=== PATIENT | female | born 1945 | race Caucasian/White ===

== ENCOUNTER 2017-10-23 06:57 | Observation (INO) ==
[2017-10-23] MEDS ORDERED: 0.9 % Sodium Chloride 500 ML IVC ONE (07:18)
--- NOTE | 2017-10-23 07:30 | Emergency Department Note ---
Disposition Clinical Impression: Generalized weakness, Dehydration Disposition: Admitted As Inpatient Condition: Fair Referrals: Aleena Lange MD [Primary Care Provider] - Forms: ED Satisfaction Letter, Work/School Release Weakness HPI - General Chief complaint: ED General Medical Stated complaint: "I just got weak today" Time Seen by Provider: 10/23/17 07:05 Source: patient, EMS Mode of arrival: EMS Limitations: no limitations Nursing Notes Reviewed: Yes Vital Signs Reviewed: Yes - History of Present Illness HPI Narrative: Patient presents to the ED via EMS complaining of generalized weakness. States she felt extremely weak when she woke up this morning and could "barely move". Denies any focal weakness, numbness or tingling in her arms or her legs. States she felt fine yesterday and when she went to bed last night. States she was nauseous earlier this morning and did vomit "a little bit." She denies any nausea now. No abdominal pain. She had one episode of soft loose stools. Denies any blood in her emesis or stool. Denies any chest pain or shortness of breath. No lightheadedness or dizziness. No fever or chills. No urinary symptoms. She does have some leg swelling which she states she noticed 2 days ago. No recent travel or sick contacts. No recent medication changes. She has not taken any of her daily medicines yet today. She has a history of high blood pressure and took her medications last night. Medical issues include CAD , cardiomyopathy, CHF, PR, hypertension and hyperlipidemia. She had both a CABG and stents in 2003. She also has chronic back pain for which she sees pain management, takes [place] and has a spinal stimulator. Pain Scale: 0 - Related Data Home Medications Medication Instructions Recorded Confirmed Atorvastatin [Lipitor] 10 mg PO HS 03/27/15 02/17/17 Carvedilol Phosphate [Coreg Cr] 20 mg PO DAILY 03/27/15 02/17/17 Famotidine [Pepcid] 40 mg PO BID 03/27/15 02/17/17 Hydrocodone/Acetaminophen [[place] 1 tab PO Q4-6H PRN 03/27/15 02/17/17 10-325 Tablet] Lisinopril [Zestril] 5 mg PO DAILY 02/11/17 02/17/17 Previous Rx's Medication Instructions Recorded Aspirin 81 mg PO DAILY #30 tab.chew 11/07/15 Budesonide/Formoterol 160/4.5 2 puff IH BIDR #1 inhaler 11/07/15 [Symbicort 160/4.5] Furosemide [Lasix] 20 mg PO DAILY #30 tablet 11/07/15 Nitroglycerin 0.4 mg SL Q5MIN PRN #20 tab.subl 11/07/15 Nicotine Patch [Nicoderm] 14 mg TD DAILY #28 patch 02/15/17 predniSONE [PredniSONE] 10 mg PO DAILY #15 tablet 02/15/17 levoFLOXacin [Levaquin] 750 mg PO DAILY #7 tablet 02/19/17 Allergies Allergy/AdvReac Type Severity Reaction Status Date / Time No Known Drug Allergies Allergy See Verified 02/17/17 10:08 Comments Constitutional: Reports: weakness. Denies: fever, chills, weight change Eyes: Denies: eye pain, eye discharge, vision change ENT ED: Denies: ear pain, throat pain, dental pain, hearing loss, epistaxis, congestion, dysphagia Cardiovascular: Reports: as per HPI, edema. Denies: chest pain, palpitations, dyspnea on exertion, syncope Respiratory: Denies: cough, dyspnea, wheezes, hemoptysis, stridor Gastrointestinal: Reports: as per HPI, nausea, vomiting, diarrhea. Denies: abdominal pain, constipation, hematemesis, melena, hematochezia Genitourinary: Denies: dysuria, frequency, hematuria, discharge Musculoskeletal: Denies: back pain, neck pain, arthralgia, myalgia Integumentary: Denies: rash, abrasion, lesions Neurological: Denies: headache, weakness, numbness, paresthesias, confusion, abnormal gait, vertigo Psychiatric: Denies: anxiety, depression, suicidal thoughts, homicidal thoughts , auditory hallucinations, visual hallucinations Endocrine: Denies: fatigue Hematological/Lymphatic: Denies: easy bleeding, easy bruising Allergic/Immunologic: Denies: facial swelling, urticaria Past Medical History - Past Medical History Medical history: Reports: cardiomyopathy, CHF, coronary artery disease, hyperlipidemia, hypertension, myocardial infarction Surgical history: Reports: appendectomy, carotid endarterectomy, cholecystectomy , coronary bypass (CABG), hysterectomy Psychiatric history: Reports: no psych history CRANBERRY GROWER history: Reports: no CRANBERRY GROWER history - Social History Smoking Status: Current every day smoker Smokeless Tobacco Status: No Alcohol use: Reports: none Drug use: Reports: none Physical Exam - General Limitations: no limitations General appearance: alert, in no apparent distress, other (thin, frail appearing ) - Head Head exam: atraumatic, normocephalic, normal inspection - Eye Eye exam: Present: normal appearance - ENT ENT exam: normal exam, normal oropharynx, mucous membranes moist - Neck Neck exam: Present: normal inspection, full ROM, trachea midline - Chest Chest inspection: Present: normal inspection, symmetric chest wall rise - Respiratory Respiratory exam: Present: normal lung sounds bilaterally - Cardiovascular Cardiovascular exam: Present: regular rate, normal rhythm, normal heart sounds - Abdominal Exam Abdominal exam: Present: soft, Non-Tender. Absent: tenderness, distention, guarding, rebound, rigidity - Extremities Exam Extremities exam: Present: normal inspection, full ROM, pedal edema (1+ bilaterally). Absent: tenderness - Back Exam Back exam: Present: normal inspection, full ROM. Absent: tenderness - Neurological Exam Neurological exam: Present: alert, oriented X3 - Psychiatric Psychiatric exam: Present: normal affect, normal mood - Skin Skin exam: Present: warm, dry, intact, normal color Course Course Narrative: Patient presents to the ED with complaint of generalized weakness and was present upon waking this morning as well as a single episode of vomiting and diarrhea without any current nausea or abdominal pain. On arrival she was hypotensive at 83/45. Subsequent blood pressure was 105/50 without intervention. She is not tachycardic with a heart rate in the 60s. Physical exam is overall unremarkable other than some lower extremity swelling. Given her cardiac history history will obtain EKG, chest x-ray and lab work. Will check orthostatic vital signs and give a fluid bolus. - Reevaluation(s) Reevaluation #1: Blood pressure has continued to improve with mild hydration. Chest x-ray shows changes of COPD and emphysema but no acute process. EKG shows atrial rhythm with no ischemic changes. Laboratory studies do show a nonspecific leukocytosis but lactic acid is normal. Fluctuates unremarkable. She has a mild stable anemia. Creatinine is increased from baseline mildly. He been unable to obtain urinalysis patient had a large loose foul-smelling bowel movement. This will be tested for C. difficile. I feel the patient would benefit from admission for continued hydration and monitoring and she is in agreement. Will contact the hospitalist on-call. Time: 08:50 Reevaluation #2: I spoke to hospitalist on-call, Dr. Hernandes, who. has agreed to admit the patient Vital Signs Temperature 98.4 F 10/23/17 06:59 Pulse Rate 65 10/23/17 06:59 Respiratory Rate 14 10/23/17 06:59 Blood Pressure 83/45 10/23/17 06:59 O2 Sat by Pulse Oximetry 97 10/23/17 06:59 Temperature 98.4 F 10/23/17 06:59 Pulse Rate 71 10/23/17 08:48 Respiratory Rate 20 10/23/17 08:38 Blood Pressure 129/63 10/23/17 08:48 O2 Sat by Pulse Oximetry 96 10/23/17 08:38 Oxygen Delivery Oxygen Delivery Room Air Weakness - Differential Diagnosis Differential Diagnosis: Likely: anemia, sepsis/infection, dehydration, metabolic , thyroid/endocrine disorder - Medical Records Medical records reviewed: Yes I reviewed the patient's medical records. - Lab Data Lab results reviewed: Yes I reviewed the patient's lab results. Result diagrams: 10/23/17 07:55 10/23/17 07:55 Lab Results 10/23/17 10/23/17 10/23/17 Range/Units 07:55 07:55 07:55 WBC 16.5 H (4.3-11.1) K/mcL RBC 3.30 L (3.82-4.97) M/mcL Hgb 10.8 L (11.5-15.4) g/dL Hct 33.3 L (35.3-44.9) % MCV 100.9 H (83.0-100.0) fL MCH 32.7 (28.0-33.3) pg MCHC 32.4 (31.6-35.5) g/dL RDW 19.6 H (11.5-14.5) % Plt Count 330 (140-400) K/mcL MPV 11.5 (9.4-12.4) fL Immature Gran % 0.5 (0-4) % Seg Neutrophils % 85.7 % Lymphocytes % 7.0 % Monocytes % 5.2 % Eosinophils % 1.4 % Basophils % 0.2 % Neutrophils # 14.1 H (1.6-8.9) K/mcL Lymphocytes # 1.2 (0.6-4.6) K/mcL Monocytes # 0.9 (0.0-1.3) K/mcL Eosinophils # 0.2 (0.0-0.6) K/mcL Basophils # 0.0 (0.0-0.2) K/mcL Nucleated RBCs/100 WBC 0.7 H (0) /100 WBC Sodium 137 (136-145) mEq/L Potassium 4.1 (3.5-5.1) mEq/L Chloride 102 (98-107) mEq/L Carbon Dioxide 28 (23-29) mEq/L BUN 31 H (8-23) mg/dL Creatinine 1.64 H (0.60-1.20) mg/dL Est GFR ( Amer) 37 L (> 60) Est GFR (Non-Af Amer) 31 L (> 60) BUN/Creatinine Ratio 19 (6-26) Glucose 111 H (70-105) mg/dL Calculated Osmolality 291 (280-300) Lactic Acid 1.5 (0.5-2.2) mmol/L Calcium 9.5 (8.6-10.3) mg/dL Total Bilirubin 0.7 (0.3-1.0) mg/dL AST 67 H (13-39) Units/L ALT 29 (7-52) Units/L Alkaline Phosphatase 55 (34-104) Units/L Troponin I < 0.03 (< 0.04) ng/mL B-Natriuretic Peptide (Less than 100) pg/mL Serum Total Protein 6.9 (6.4-8.9) g/dL Albumin 4.5 (3.5-5.7) g/dL Globulin 2.4 (2.4-3.5) g/dL Albumin/Globulin Ratio 1.9 (1.1-2.2) TSH 0.971 (0.340-5.600) mcIU/mL 10/23/17 Range/Units 07:55 WBC (4.3-11.1) K/mcL RBC (3.82-4.97) M/mcL Hgb (11.5-15.4) g/dL Hct (35.3-44.9) % MCV (83.0-100.0) fL MCH (28.0-33.3) pg MCHC (31.6-35.5) g/dL RDW (11.5-14.5) % Plt Count (140-400) K/mcL MPV (9.4-12.4) fL Immature Gran % (0-4) % Seg Neutrophils % % Lymphocytes % % Monocytes % % Eosinophils % % Basophils % % Neutrophils # (1.6-8.9) K/mcL Lymphocytes # (0.6-4.6) K/mcL Monocytes # (0.0-1.3) K/mcL Eosinophils # (0.0-0.6) K/mcL Basophils # (0.0-0.2) K/mcL Nucleated RBCs/100 WBC (0) /100 WBC Sodium (136-145) mEq/L Potassium (3.5-5.1) mEq/L Chloride (98-107) mEq/L Carbon Dioxide (23-29) mEq/L BUN (8-23) mg/dL Creatinine (0.60-1.20) mg/dL Est GFR ( Amer) (> 60) Est GFR (Non-Af Amer) (> 60) BUN/Creatinine Ratio (6-26) Glucose (70-105) mg/dL Calculated Osmolality (280-300) Lactic Acid (0.5-2.2) mmol/L Calcium (8.6-10.3) mg/dL Total Bilirubin (0.3-1.0) mg/dL AST (13-39) Units/L ALT (7-52) Units/L Alkaline Phosphatase (34-104) Units/L Troponin I (< 0.04) ng/mL B-Natriuretic Peptide 439 H (Less than 100) pg/mL Serum Total Protein (6.4-8.9) g/dL Albumin (3.5-5.7) g/dL Globulin (2.4-3.5) g/dL Albumin/Globulin Ratio (1.1-2.2) TSH (0.340-5.600) mcIU/mL - Radiology Data Radiology results reviewed: Yes I reviewed the patient's radiology results. ITS Impressions Chest X-Ray 10/23/17 07:18 IMPRESSION: 1. No acute cardiopulmonary abnormality. 2. COPD and emphysema. D/ / Sylvia Goddard MD / Sylvia Goddard MD Interpreting Provider: Sylvia Goddard MD - EKG Data EKG attestation: Yes I reviewed and interpreted this EKG. EKG shows normal: sinus rhythm Rate: normal Rhythm: NSR [place]/QRS: normal Interpretation: no acute changes, unchanged when compared to prior tracing (date ) (02/16/17)
[2017-10-23 08:04] LABS: Basophils % 0.2 %; Eosinophils # 0.2 K/mcL (0.0-0.6); Eosinophils % 1.4 %; Hematocrit 33.3 % (35.3-44.9); Hemoglobin 10.8 g/dL (11.5-15.4); Immature Granulocytes % 0.5 % (0-4); Lymphocytes # 1.2 K/mcL (0.6-4.6); Mean Corpuscular HGB Conc 32.4 g/dL (31.6-35.5); Mean Corpuscular Hemoglobin 32.7 pg (28.0-33.3); Mean Corpuscular Volume 100.9 fL (83.0-100.0); Mean Platelet Volume 11.5 fL (9.4-12.4); Monocytes # 0.9 K/mcL (0.0-1.3); Monocytes % 5.2 %; Neutrophils # 14.1 K/mcL (1.6-8.9); Nucleated Red Blood Cells 0.7 /100 WBC (0); Platelet Count 330 K/mcL (140-400); Red Cell Distribution Width 19.6 % (11.5-14.5); Segmented Neutrophils % 85.7 %
[2017-10-23 08:21] LABS: Alanine Aminotransferase 29 Units/L (7-52); Albumin 4.5 g/dL (3.5-5.7); Albumin/Globulin Ratio 1.9 (1.1-2.2); Alkaline Phosphatase 55 Units/L (34-104); Aspartate Amino Transferase 67 Units/L (13-39); BUN/Creatinine Ratio 19 (6-26); Bilirubin,Total 0.7 mg/dL (0.3-1.0); Blood Urea Nitrogen 31 mg/dL (8-23); Calcium 9.5 mg/dL (8.6-10.3); Carbon Dioxide 28 mEq/L (23-29); Chloride 102 mEq/L (98-107); Globulin 2.4 g/dL (2.4-3.5); Glucose 111 mg/dL (70-105); Osmolality,Calculated 291 (280-300); Potassium 4.1 mEq/L (3.5-5.1); Sodium 137 mEq/L (136-145); Total Protein 6.9 g/dL (6.4-8.9); eGFR For African Americans 37 (> 60); eGFR For Non-African Americans 31 (> 60)
[2017-10-23 08:22] LABS: Troponin I < 0.03 ng/mL (< 0.04)
[2017-10-23 08:35] LABS: Thyroid Stimulating Hormone 0.971 mcIU/mL (0.340-5.600)
[2017-10-23] MEDS ORDERED: Naloxone 0.4 MG/ML INJ IVP PRN ×2 (08:56→10:15)
[2017-10-23] MEDS ORDERED: 0.9 % Sodium Chloride 1,000 ML IVC SCH ×2 (09:00→10:15)
--- NOTE | 2017-10-23 12:43 | Internal Med History&Physical ---
Date of Encounter: 10/23/17 Time of Encounter: 12:05 Assessment and Plan (1) Neutrophilic leukocytosis Current visit: Yes Status: Acute Etiology not obvious. Chest x-ray was unremarkable. Urine culture has been ordered along with stool for C. difficile. (2) Anemia Current visit: No Status: Acute We will order anemia testing in a.m. Qualifiers: Anemia type: iron deficiency Qualified Code(s): D50.8 - Other iron deficiency anemias (3) HTN (hypertension) Current visit: No Status: Chronic Continue lisinopril and monitor blood pressure. Qualifiers: Hypertension type: essential hypertension Qualified Code(s): I10 - Essential (primary) hypertension (4) CHF (congestive heart failure) Current visit: No Status: Chronic Continue lisinopril. Qualifiers: Qualified Code(s): I50.32 - Chronic diastolic (congestive) heart failure (5) Generalized weakness Current visit: Yes Status: Acute Improved since emergency room. We will do workup as ordered. (6) CKD (chronic kidney disease) stage 3, GFR 30-59 ml/min Current visit: No Status: Acute We will give IV fluids and monitor renal indices. (7) COPD (chronic obstructive pulmonary disease) Current visit: Yes Status: Chronic Chest CTA showed no worrisome pathology 02/11/2017. Qualifiers: COPD type: unspecified COPD Qualified Code(s): J44.9 - Chronic obstructive pulmonary disease, unspecified Internal Medicine - H&P: HPI Chief complaint: Weakness Admitted From: Emergency Dept Plans for Post Hospital Care: Home History of present illness: Ms. Davis is a 72 year old female who came to emergency room stating she awakened with weakness this morning. She denies pain or dyspnea or other symptoms. Valuated emergency room and found to have anemia, leukocytosis with left shift, and azotemia. She was admitted to [facility] floor for ongoing care needs. Denies vomiting but states she had a single loose stool in emergency room. She states she felt at her baseline yesterday. Past Med Surg Social Fam HX - Past Medical History Medical history: cardiomyopathy, CHF, coronary artery disease, hyperlipidemia, hypertension, myocardial infarction Psychiatric history: no psych history - Past Surgical History Surgical History: appendectomy, carotid endarterectomy, cholecystectomy, coronary bypass (CABG), hysterectomy - Social History Smoking Status: Current every day smoker Smokeless Tobacco Status: No Alcohol use: none Drug use: none - Family History Brother Family Member Ethnicity: Non- Living Status: Still Living Hx Family Cardiac Disorders: Yes (HD) Hx Family Endocrine Disorder: Yes (DM) Sister Family Member Ethnicity: Non- Living Status: Still Living Hx Family Cardiac Disorders: Yes (HTN, CT) Hx Family Endocrine Disorder: Yes (DM) Father Family Member Ethnicity: Non- Living Status: Hx Family Cardiac Disorders: Yes (Stroke, HTN) Hx Family Respiratory Disorders: Yes Hx Family Cancer: No Hx Family GI Disorders: No Hx Family Endocrine Disorder: No Hx Family Neuromuscular Disorders: No Hx Family Neurologic Disorders: No Hx Family HEENT Disorders: No Hx Family Autoimmune Disorders: No Mother Family Member Ethnicity: Non- Living Status: Hx Family Cardiac Disorders: Yes (CVA, CT, HTN) Hx Family Respiratory Disorders: Yes Hx Family Cancer: No Hx Family GI Disorders: No Hx Family Endocrine Disorder: Yes (DM) Hx Family Neuromuscular Disorders: No Hx Family Neurologic Disorders: No Hx Family HEENT Disorders: No Hx Family Autoimmune Disorders: No Internal Medicine - H&P: Meds Atorvastatin [Lipitor] 10 mg PO HS 03/27/15 [History] Hydrocodone/Acetaminophen [[place] 10-325 Tablet] 1 tab PO Q4-6H PRN 03/27/15 [ History] Aspirin 81 mg PO DAILY #30 tab.chew 11/07/15 [Rx] Budesonide/Formoterol 160/4.5 [Symbicort 160/4.5] 2 puff IH BIDR #1 inhaler 11/16 [Rx] Nitroglycerin 0.4 mg SL Q5MIN PRN #20 tab.subl 11/07/15 [Rx] Lisinopril [Zestril] 5 mg PO DAILY 02/11/17 [History] 3 Allergy/AdvReac Type Severity Reaction Status Date / Time No Known Drug Allergies Allergy See Verified 02/17/17 10:08 Comments All Systems PM: A 10-system review of systems was performed and is negative for pertinent findings except as documented above in the HPI. Review of systems: Gen.: She states her weight has been stable the past few months Cardiovascular: She has history of hypertension. She has heart failure with echocardiogram 11/05/2015 showing LVEF of 40-45%. There was severe mitral regurgitation and [id number] mitral stenosis. There was significant elevated RVSP of 61 mmHg. The interventricular septum and posterior wall thickness measurements were normal at 1.0 and 0.80 cm respectively. LAE was present at 4.10 cm. The E/A ratio was 1.3. Aortic valve pressure half time was 341 ms consistent with moderate aortic insufficiency. She has known ASHD status post CT with 3 vessel CABG 2003. She reports heart catheter [facility] at [facility] was satisfactory without further intervention recommended. She denies dyspnea or chest pain on exertion DVT or pulmonary embolus. She has had bilateral carotid endarterectomies. Respiratory: She has smoked since age 52 a total of 18 years up to one pack per day. She states she has been diagnosed with COPD has been prescribed oxygen which she uses only when she feels she needs it. She states she has been diagnosed with DANIS but does not use CPAP/BiPAP. GI: She has GERD. She has had cholecystectomy. She denies disorders of her liver or exocrine pancreas : She has chronic kidney disease and reports additional abnormality in her right kidney but cannot describe. She denies other kidney or bladder disorders Neurologic: She denies large distribution strokes or seizures. Endocrine: She has hyperlipidemia but denies thyroid disease or diabetes. Hematology/oncology: She has anemia but denies internal malignancies. Psychiatric: She denies anxiety depression or other mental health issues [place] skeletal: She has had back stimulator placed for pain October 2014. She has had cervical spine surgery with hardware insertion for DJD with osteoporosis. She denies other bone joint or muscle disorders. - Constitutional Vitals: Temp Pulse Resp BP Pulse Ox 98.4 F 66 18 142/56 97 10/23/17 06:59 10/23/17 10:00 10/23/17 10:00 10/23/17 10:00 10/23/17 10:00 Exam: Gen.: She is a well-developed lean female resting comfortably in bed who appears in no acute distress HEENT: Head is atraumatic and normocephalic. Eyes: EOMI. There is no scleral icterus. Mouth: Mucosa is moist. Neck: She has well-healed bilateral carotid endarterectomy scars. There is no thyromegaly or adenopathy noted. Heart: Regular without murmurs gallops or ectopics Lungs: No wheezes or crackles are heard. Abdomen: Soft and nontender. No masses or guarding are noted. Extremities: There is no cyanosis edema or clubbing noted. Dorsalis pedis and posttibial pulses are 1-2 over 2 bilaterally. She has onychomycosis of left foot toenails. She has DJD changes of her hands. Neurologic: Mental status: She is talkative and a good historian. Cranial nerves: Smile is symmetric. Forehead wrinkles bilaterally. Tongue protrudes midline. EOMI. Motor: There is no pronator drift. Cerebellar: Finger to nose is intact bilaterally. Skin: Warm and dry Internal Med - H&P Results - Labs CBC & Chem 7: 10/23/17 07:55 10/23/17 07:55 - VTE Reasons for not Prescribing Prophylaxis: Treatment not Indicated - Low risk for VTE
[2017-10-23 15:11] LABS: Bilirubin,Urine Negative (Negative); Blood,Urine Trace-intact (Negative); Clarity,Urine Clear (Clear); Color,Urine Yellow (Yellow); Glucose,Urine (UA) Normal (Normal); Ketones,Urine Negative (Negative); Leukocyte Esterase,Urine Negative (Negative); Nitrite,Urine Negative (Negative); Protein,Urine Negative (Neg-Trace); Specific Gravity,Urine 1.015 (1.010-1.025); Urobilinogen,Urine Normal (Normal)
[2017-10-23 15:41] LABS: Hyaline Casts,Urine Few per lpf (None-Few)
[2017-10-23 15:42] LABS: Granular Casts,Urine Few per lpf (None Seen); RBC,Urine 0-3 per hpf (0-3); Squamous Epithelial Cell,Urine Few per lpf (None-Few); WBC,Urine 0-3 per hpf (0-3); Waxy Casts,Urine Moderate per lpf (None Seen)
[2017-10-23 15:43] LABS: Bacteria,Urine Few per hpf (None-Few)
[2017-10-23 15:49] LABS: Basophils % 0.1 %; Hematocrit 25.4 % (35.3-44.9); Hemoglobin 8.3 g/dL (11.5-15.4); Immature Granulocytes % 0.2 % (0-4); Lymphocytes # 1.1 K/mcL (0.6-4.6); Lymphocytes % 12.7 %; Mean Corpuscular HGB Conc 32.7 g/dL (31.6-35.5); Mean Corpuscular Hemoglobin 32.3 pg (28.0-33.3); Mean Corpuscular Volume 98.8 fL (83.0-100.0); Mean Platelet Volume 11.2 fL (9.4-12.4); Monocytes # 0.7 K/mcL (0.0-1.3); Monocytes % 7.8 %; Neutrophils # 6.7 K/mcL (1.6-8.9); Nucleated Red Blood Cells 0.4 /100 WBC (0); Platelet Count 249 K/mcL (140-400); Red Blood Count 2.57 M/mcL (3.82-4.97); Red Cell Distribution Width 19.1 % (11.5-14.5); Segmented Neutrophils % 79.2 %
[2017-10-23] MEDS: Vancomycin Oral Soln 125 MG/2.5 ML UDC PO SCH (18:41)
[2017-10-23] MEDS ORDERED: 0.45 % Sodium Chloride 500 ML IV.SOLN IVC ONE (19:49)
[2017-10-23 20:08] LABS: Basophils % 0.1 %; Eosinophils # 0.1 K/mcL (0.0-0.6); Eosinophils % 1.2 %; Hematocrit 22.9 % (35.3-44.9); Hemoglobin 7.5 g/dL (11.5-15.4); Immature Granulocytes % 0.2 % (0-4); Lymphocytes # 1.5 K/mcL (0.6-4.6); Lymphocytes % 18.1 %; Mean Corpuscular HGB Conc 32.8 g/dL (31.6-35.5); Mean Corpuscular Hemoglobin 32.5 pg (28.0-33.3); Mean Corpuscular Volume 99.1 fL (83.0-100.0); Mean Platelet Volume 10.7 fL (9.4-12.4); Monocytes # 0.8 K/mcL (0.0-1.3); Monocytes % 9.6 %; Neutrophils # 5.8 K/mcL (1.6-8.9); Nucleated Red Blood Cells 0.2 /100 WBC (0); Platelet Count 225 K/mcL (140-400); Red Blood Count 2.31 M/mcL (3.82-4.97); Red Cell Distribution Width 19.6 % (11.5-14.5); Segmented Neutrophils % 70.8 %
--- NOTE | 2017-10-23 20:39 | Electrocardiograph Report ---
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
[2017-10-23] MEDS ORDERED: 0.9 % Sodium Chloride 250 ML ONE (22:28)
[2017-10-23] MEDS: Lactobacillus 1 EACH CAP.SPRINK PO SCH (23:10)
[2017-10-24] MEDS: Vancomycin Oral Soln 125 MG/2.5 ML UDC PO SCH ×4 (01:28→19:03)
[2017-10-24 06:06] LABS: Basophils % 0.4 %; Eosinophils # 0.3 K/mcL (0.0-0.6); Eosinophils % 3.5 %; Hematocrit 28.5 % (35.3-44.9); Hemoglobin 9.4 g/dL (11.5-15.4); Immature Granulocytes % 0.4 % (0-4); Lymphocytes # 2.1 K/mcL (0.6-4.6); Lymphocytes % 28.3 %; Mean Corpuscular Hemoglobin 32.1 pg (28.0-33.3); Mean Corpuscular Volume 97.3 fL (83.0-100.0); Mean Platelet Volume 11.4 fL (9.4-12.4); Monocytes # 0.7 K/mcL (0.0-1.3); Monocytes % 9.3 %; Neutrophils # 4.4 K/mcL (1.6-8.9); Nucleated Red Blood Cells 0.4 /100 WBC (0); Platelet Count 216 K/mcL (140-400); Red Blood Count 2.93 M/mcL (3.82-4.97); Red Cell Distribution Width 19.2 % (11.5-14.5); Segmented Neutrophils % 58.1 %
[2017-10-24 06:28] LABS: Albumin 3.5 g/dL (3.5-5.7); Albumin/Globulin Ratio 1.9 (1.1-2.2); Bilirubin,Total 0.6 mg/dL (0.3-1.0); Calcium 8.3 mg/dL (8.6-10.3); Globulin 1.8 g/dL (2.4-3.5); Potassium 4.2 mEq/L (3.5-5.1); Total Protein 5.3 g/dL (6.4-8.9)
[2017-10-24] MEDS: Lactobacillus 1 EACH CAP.SPRINK PO SCH ×2 (07:50→20:33)
[2017-10-24 09:18] LABS: Vitamin B12 529 pg/mL (250-1100)
[2017-10-24 09:28] LABS: Folate > 22.3 ng/mL (3.0-16.0)
[2017-10-24] MEDS ORDERED: Bumetanide 1 MG/4 ML VIAL IVP ONE (10:15)
--- NOTE | 2017-10-24 10:20 | Internal Med Progress Note ---
Date of Encounter: 10/24/17 Time of Encounter: 10:10 - Assessment and plan (1) Neutrophilic leukocytosis Current Visit: Yes Status: Acute Assessment and plan: October 24. Leukocytosis and left shift have resolved with treatment for C. difficile. Continue present regimen. (2) Anemia Current Visit: No Status: Acute Assessment and plan: October 24. Anemia testing in progress. Hemoglobin improved to 9.4 after 1 unit blood transfusion last p.m. Qualifiers: Anemia type: iron deficiency Qualified Code(s): D50.8 - Other iron deficiency anemias (3) HTN (hypertension) Current Visit: No Status: Chronic Assessment and plan: October 24. Blood pressure borderline low. Will hold lisinopril. Qualifiers: Hypertension type: essential hypertension Qualified Code(s): I10 - Essential (primary) hypertension (4) CHF (congestive heart failure) Current Visit: No Status: Chronic Assessment and plan: October 24. Will give IV Bumex and start Imdur. Hold lisinopril and Coreg because of borderline hypotension. Qualifiers: Qualified Code(s): I50.32 - Chronic diastolic (congestive) heart failure (5) Generalized weakness Current Visit: Yes Status: Acute Assessment and plan: October 24. Improved. Continue present regimen. (6) CKD (chronic kidney disease) stage 3, GFR 30-59 ml/min Current Visit: No Status: Acute Assessment and plan: October 24. Improved. Oral intake adequate. Will discontinue IV fluids. (7) COPD (chronic obstructive pulmonary disease) Current Visit: Yes Status: Chronic Assessment and plan: October 24. Continue present regimen Qualifiers: COPD type: unspecified COPD Qualified Code(s): J44.9 - Chronic obstructive pulmonary disease, unspecified - Subjective Interval history: October 24. She complains of dyspnea that has been present for several hours. She denies pain. She states she has had no further bloody BM. - Constitutional Vitals: Temp Pulse Resp BP Pulse Ox 98.1 F 64 18 102/48 95 10/24/17 06:40 10/24/17 06:40 10/24/17 06:40 10/24/17 06:40 10/24/17 06:40 Exam: She is resting comfortably on the side of bed and appears in no acute distress. She does not appear dyspneic. Heart is regular without murmurs gallops or ectopics. Lungs are clear. I reviewed her medications. I discussed pertinent lab results with her. Internal Medicine: Result - Labs CBC & Chem 7: 10/24/17 04:47 10/24/17 04:47 Labs: Short CBC 10/23/17 10/23/17 10/24/17 Range/Units 15:43 20:00 04:47 WBC 8.4 8.2 7.5 (4.3-11.1) K/mcL Hgb 8.3 L D 7.5 L 9.4 L D (11.5-15.4) g/dL Hct 25.4 L 22.9 L 28.5 L (35.3-44.9) % Plt Count 249 225 216 (140-400) K/mcL Neutrophils # 6.7 5.8 4.4 (1.6-8.9) K/mcL BMP 10/24/17 04:47 Sodium 139 Potassium 4.2 Chloride 109 H Carbon Dioxide 24 BUN 21 Creatinine 1.22 H Glucose 82 Calcium 8.3 L Liver Function 10/24/17 Range/Units 04:47 Total Bilirubin 0.6 (0.3-1.0) mg/dL AST 37 (13-39) Units/L ALT 19 (7-52) Units/L Alkaline Phosphatase 42 (34-104) Units/L Albumin 3.5 (3.5-5.7) g/dL Urine 10/23/17 Range/Units 15:00 Urine Color Yellow (Yellow) Urine Clarity Clear (Clear) Urine pH 5.0 (5.0-8.0) pH Units Ur Specific [place] 1.015 (1.010-1.025) Urine Protein Negative (Neg-Trace) mg/dL Urine Glucose (UA) Normal (Normal) mg/dL - Impressions Impressions Abdomen/Pelvis CT 10/23/17 15:57 IMPRESSION: 1. Circumferential wall thickening of the distal transverse, descending, and sigmoid colon compatible with colitis. 2. Trace likely reactive free fluid in the pelvis. 3. Status post cholecystectomy and hysterectomy. D/ / Kristopher Lao MD / Kristopher Lao MD Interpreting Provider: Kristopher Lao MD - VTE Reasons for not Prescribing Prophylaxis: Treatment not Indicated - Low risk for VTE Consult Discharge Plan - Plan Referrals: Aleena Lange MD [Primary Care Provider] - 1 week
[2017-10-24] MEDS: Isosorbide MONOnitrate (24 HR) 30 MG TAB.ER.24H PO SCH (11:15)
[2017-10-24] MEDS: *HR* HYDROcodone/Acet 5/325 mg TABLET PO PRN (20:33)
[2017-10-25] MEDS: *HR* HYDROcodone/Acet 5/325 mg TABLET PO PRN ×2 (00:47→08:47)
[2017-10-25] MEDS: Vancomycin Oral Soln 125 MG/2.5 ML UDC PO SCH (00:48)
[2017-10-25 06:33] LABS: Basophils % 0.3 %; Eosinophils # 0.3 K/mcL (0.0-0.6); Eosinophils % 3.4 %; Hematocrit 30.1 % (35.3-44.9); Hemoglobin 9.9 g/dL (11.5-15.4); Immature Granulocytes % 0.4 % (0-4); Lymphocytes % 21.3 %; Mean Corpuscular HGB Conc 32.9 g/dL (31.6-35.5); Mean Corpuscular Hemoglobin 31.6 pg (28.0-33.3); Mean Corpuscular Volume 96.2 fL (83.0-100.0); Mean Platelet Volume 10.4 fL (9.4-12.4); Monocytes # 0.9 K/mcL (0.0-1.3); Monocytes % 9.2 %; Neutrophils # 6.2 K/mcL (1.6-8.9); Nucleated Red Blood Cells 0.2 /100 WBC (0); Platelet Count 232 K/mcL (140-400); Red Blood Count 3.13 M/mcL (3.82-4.97); Segmented Neutrophils % 65.4 %
[2017-10-25 06:54] LABS: Potassium 4.2 mEq/L (3.5-5.1)
[2017-10-25] MEDS: Lactobacillus 1 EACH CAP.SPRINK PO SCH (08:47)
[2017-10-25] MEDS: Isosorbide MONOnitrate (24 HR) 30 MG TAB.ER.24H PO SCH (08:47)
[2017-10-25 09:36] VITALS: BP 126/58
--- NOTE | 2017-10-25 09:49 | Discharge Summary ---
Date of Encounter: 10/25/17 Time of Encounter: 09:38 - Discharge Diagnosis (1) C. difficile colitis Priority: Primary Status: Acute (2) Anemia Priority: Secondary Status: Acute Qualifiers: Anemia type: iron deficiency Qualified Code(s): D50.8 - Other iron deficiency anemias (3) HTN (hypertension) Priority: Secondary Status: Chronic Qualifiers: Hypertension type: essential hypertension Qualified Code(s): I10 - Essential (primary) hypertension (4) CHF (congestive heart failure) Priority: Secondary Status: Chronic Qualifiers: Qualified Code(s): I50.32 - Chronic diastolic (congestive) heart failure (5) Generalized weakness Priority: Secondary Status: Acute (6) CKD (chronic kidney disease) stage 3, GFR 30-59 ml/min Priority: Secondary Status: Chronic (7) COPD (chronic obstructive pulmonary disease) Priority: Secondary Status: Chronic Qualifiers: COPD type: unspecified COPD Qualified Code(s): J44.9 - Chronic obstructive pulmonary disease, unspecified Hospital course: Ms. Davis is a 72 year old female who came to emergency room stating she awakened with weakness the morning of admission. She denies pain or dyspnea or other symptoms. She was evaluated in emergency room and found to have anemia, leukocytosis with left shift, and azotemia. She was admitted to [facility] floor for ongoing care needs. Initial orders were written by the emergency room physician. I saw her on October 23 and performed a history and physical. Stool returned positive for C. difficile. She was started on oral vancomycin. Hematochezia resolved by the second hospital day. She was given 1 unit packed red blood cells and hemoglobin was stable at 9.9 on day of discharge. Anemia testing showed iron 50 , transferrin saturation 23%, transferrin 152, ferritin 552, B12 529, and folate greater than 22.3. She will continue with oral vancomycin and lactobacillus for 10 additional days at discharge. Azotemia improved with creatinine decreasing to 1.16 and estimated GFR rising to 46 by day of discharge. She was started on isosorbide and low-dose Bumex for heart failure. Her PCP can monitor this. On October 25 she felt significantly improved and wished to be discharged home. She will follow with her PCP within 1 week. - Time Spent with Patient Total time spent providing and/or coordinating discharge services: - Discharge Medications Prescriptions: Bumetanide 0.5 mg PO Q48H #15 tablet Isosorbide MONOnitrate (24 HR) [Imdur] 30 mg PO DAILY #30 tab.er.24h Lactobacillus [Culturelle] 1 each PO BID #20 cap.sprink Vancomycin Oral Soln [Firvanq] 125 mg PO Q6H #40 udc Home Medications: Atorvastatin [Lipitor] 10 mg PO HS 03/27/15 [History] Hydrocodone/Acetaminophen [[place] 10-325 Tablet] 1 tab PO Q4-6H PRN 03/27/15 [ History] Aspirin 81 mg PO DAILY #30 tab.chew 11/07/15 [Rx] Budesonide/Formoterol 160/4.5 [Symbicort 160/4.5] 2 puff IH BIDR #1 inhaler 11/16 [Rx] Nitroglycerin 0.4 mg SL Q5MIN PRN #20 tab.subl 11/07/15 [Rx] Lisinopril [Zestril] 5 mg PO DAILY 02/11/17 [History] Bumetanide 0.5 mg PO Q48H #15 tablet 10/25/17 [Rx] Isosorbide MONOnitrate (24 HR) [Imdur] 30 mg PO DAILY #30 tab.er.24h 10/25/17 [ Rx] Lactobacillus [Culturelle] 1 each PO BID #20 cap.sprink 10/25/17 [Rx] Vancomycin Oral Soln [Firvanq] 125 mg PO Q6H #40 udc 10/25/17 [Rx] Allergies/Adverse Reactions: 3 Allergy/AdvReac Type Severity Reaction Status Date / Time No Known Drug Allergies Allergy See Verified 02/17/17 10:08 Comments Date of admission: 10/23/17 09:48 Primary care physician: Aleena Lange - Constitutional Vitals: Temp Pulse Resp BP Pulse Ox 98.3 F 74 14 126/58 93 10/25/17 07:00 10/25/17 07:00 10/25/17 07:00 10/25/17 07:00 10/25/17 07:00 - Patient Status Disposition: Home, Self-Care Condition: Fair Overall status at discharge: patient is progressing back to baseline - Discharge Instructions Follow Up With: Aleena Lange MD [Primary Care Provider] - 1 week - Diet and Activity Activity: resume usual activities as tolerated Diet: advance to your usual diet - VTE Reasons for not Prescribing Prophylaxis: Treatment not Indicated - Low risk for VTE
== END 2017-10-25 11:31 | disposition home or self-care (01) ==
LOC: EMEROOPIK 06:57 → INPPIK 06:57
PROVIDERS: ADMIT Internal Medicine; ATTEND Internal Medicine